=== PATIENT | female | born 1960 | race Hispanic/Latino ===

== ENCOUNTER 2021-03-16 05:56 | Emergency (ER) | payer OTHER ==
[~2021-03-16] VITALS: Ht 160 cm; Wt 80.7 kg
[2021-03-16] MEDS ORDERED: LIDOCAINE HCL 1% LOCAL INJ 20 ML VIAL INJ STA (06:17)
[2021-03-16] MEDS ORDERED: HYDROCODONE/APAP 5MG-325MG TAB PO STA (06:17)
[2021-03-16] MEDS ORDERED: HYDROCODONE/APAP 5MG-325MG TAB ONE (06:33)
[2021-03-16] MEDS ORDERED: LIDOCAINE HCL 1% LOCAL INJ 20 ML VIAL ONE (06:34)
[2021-03-16] MEDS ORDERED: MORPHINE SULFATE INJ 4 MG/ML INJ 1ML IM STA (08:09)
[2021-03-16] MEDS ORDERED: MORPHINE SULFATE INJ 4 MG/ML INJ 1ML ONE (08:24)
[2021-03-16] MEDS ORDERED: ULTRAM50 MG PO (08:43)
[2021-03-16 09:02] VITALS: BP 110/62
== END 2021-03-16 09:00 | disposition home or self-care (01) ==
LOC: FSED 06:19
DX: S52.501A Unspecified fracture of the lower end of right radius, initial encounter for closed fracture (principal); S52.601A Unspecified fracture of lower end of right ulna, initial encounter for closed fracture; S00.83XA Contusion of other part of head, initial encounter; R42 Dizziness and giddiness; W18.12XA Fall from or off toilet with subsequent striking against object, initial encounter; Y92.002 Bathroom of unspecified non-institutional (private) residence as the place of occurrence of the external cause; I10 Essential (primary) hypertension; E11.65 Type 2 diabetes mellitus with hyperglycemia; I25.2 Old myocardial infarction; Z95.5 Presence of coronary angioplasty implant and graft
CPT/HCPCS: 25605; 36415; 70450; 72125; 73110; 82948; 93005; 99283; J2001; J2270

== ENCOUNTER 2021-07-14 09:34 | Emergency (ER) | payer OTHER ==
[~2021-07-14] VITALS: Ht 160 cm; Wt 80.7 kg
[~2021-07-14 09:34] MED LIST: ULTRAM50 MG PO
[2021-07-14] MEDS ORDERED: DEXAMETHASONE 4 MG TAB PO ONE (10:07)
[2021-07-14] MEDS ORDERED: MUCINEX DM ER1 EACH PO (11:03)
== END 2021-07-14 12:55 | disposition home or self-care (01) ==
LOC: ER 09:37
DX: R05 Cough (principal); J06.9 Acute upper respiratory infection, unspecified; I10 Essential (primary) hypertension; E11.9 Type 2 diabetes mellitus without complications; I25.10 Atherosclerotic heart disease of native coronary artery without angina pectoris; I25.2 Old myocardial infarction
CPT/HCPCS: 71045; 83518; 87070; 93005; 99284

== ENCOUNTER 2022-01-27 17:40 | Emergency (ER) | payer OTHER ==
[~2022-01-27] VITALS: Ht 160 cm; Wt 79.4 kg
[~2022-01-27 17:40] MED LIST changes: +MUCINEX DM ER1 EACH PO
[2022-01-27] MEDS ORDERED: ACETAMINOPHEN 325 MG TAB PO STA (18:09)
[2022-01-27] MEDS ORDERED: SODIUM CHLORIDE 0.9% 1000ML 1,000 ML IV STA (18:09)
[2022-01-27] MEDS ORDERED: PIPERACILLIN/TAZOBACTAM 3.375 GM in SODIUM CHLORIDE 0.9% 50ML 50 ML IV SCH (18:15)
[2022-01-27] MEDS ORDERED: ONDANSETRON HCL INJ 2MG/ML 2ML 2 MG/ML VIAL ONE (18:22)
[2022-01-27] MEDS ORDERED: SODIUM CHLORIDE 0.9% 1000ML 1,000 ML ONE (18:23)
[2022-01-27] MEDS ORDERED: IBUPROFEN 600 MG TAB ONE (18:24)
[2022-01-27 18:36] LABS: BASOPHILS % 0.3 % (0.0-1.0); EOSINOPHILS # (AUTO) 0.1 (0.0-0.4); EOSINOPHILS % 1.2 % (0.0-6.0); HEMATOCRIT 35.2 % (34.2-44.1); HEMOGLOBIN 11.4 g/dL (12.0-16.0); LYMPHOCYTES # (AUTO) 0.8 (1.0-3.2); LYMPHOCYTES % 8.6 % (18.0-39.1); MEAN CORPUSCULAR HEMOGLOBIN 28.8 pg (28-32); MEAN CORPUSCULAR HGB CONC 32.4 g/dL (31-35); MEAN CORPUSCULAR VOLUME 88.9 fL (81-99); MONOCYTES # (AUTO) 0.2 (0.2-0.8); NEUTROPHILS # (AUTO) 8.4 (2.1-6.9); NEUTROPHILS % 87.6 % (38.7-80.0); PLATELET COUNT 273 x10e3/uL (140-360); RED BLOOD COUNT 3.96 x10e6/uL (3.6-5.1); RED CELL DISTRIBUTION WIDTH 11.9 % (11.7-14.4)
[2022-01-27 18:54] LABS: ALBUMIN 3.5 g/dL (3.5-5.0); ALBUMIN/GLOBULIN RATIO 0.8 (0.8-2.0); ANION GAP 15.3 mmol/L (8-16); CALCIUM 9.3 mg/dL (8.4-10.2); CREATININE, SERUM 1.59 mg/dL (0.57-1.11); POTASSIUM 4.3 mmol/L (3.5-5.1)
[2022-01-27] MEDS ORDERED: ONDANSETRON HCL INJ 2MG/ML 2ML 2 MG/ML VIAL IV STA (19:09)
== END 2022-01-27 20:40 | disposition home or self-care (01) ==
LOC: ER 18:06
DX: R50.9 Fever, unspecified (principal); B34.9 Viral infection, unspecified; I10 Essential (primary) hypertension; E11.9 Type 2 diabetes mellitus without complications; I25.10 Atherosclerotic heart disease of native coronary artery without angina pectoris; I25.2 Old myocardial infarction; Z95.5 Presence of coronary angioplasty implant and graft
CPT/HCPCS: 36415; 71046; 80053; 83605; 85025; 87040; 87071; 87186; 87205; 99284; J2405; J7030; U0002

== ENCOUNTER 2022-01-28 07:53 | Emergency (ER) | payer OTHER ==
[~2022-01-28] VITALS: Ht 160 cm; Wt 79.4 kg
[2022-01-28 09:27] LABS: CLARITY,URINE CLOUDY (CLEAR); COLOR,URINE YELLOW (YELLOW); KETONES,URINE NEGATIVE (NEGATIVE); LEUKOCYTE ESTERASE ,URINE MODERATE (NEGATIVE); NITRITE,URINE NEGATIVE (NEGATIVE); PROTEIN,URINE DIPSTICK TRACE (NEGATIVE); URINE UROBILINOGEN 0.2 mg/dL (0.2 - 1)
[2022-01-28 09:41] LABS: BACTERIA,URINE MODERATE /HPF; EPITHELIAL CELLS,URINE FEW /LPF; WBC,URINE (MAN) >50 /HPF (0-5)
== END 2022-01-28 09:52 | disposition home or self-care (01) ==
LOC: ER 08:04
DX: R50.9 Fever, unspecified (principal); N39.0 Urinary tract infection, site not specified; R11.2 Nausea with vomiting, unspecified; I12.9 Hypertensive chronic kidney disease with stage 1 through stage 4 chronic kidney disease, or unspecified chronic kidney disease; E11.22 Type 2 diabetes mellitus with diabetic chronic kidney disease; E11.65 Type 2 diabetes mellitus with hyperglycemia; N18.9 Chronic kidney disease, unspecified; I25.2 Old myocardial infarction; I25.10 Atherosclerotic heart disease of native coronary artery without angina pectoris; Z95.5 Presence of coronary angioplasty implant and graft
CPT/HCPCS: 36415; 74018; 81001; 82948; 99283

== ENCOUNTER → 2022-09-08 | Day surgery (SDC) | payer OTHER ==
[~2022-09-08] MED LIST changes: +ASPIRIN81 MG PO; +ATORVASTATIN CA20 MG PO; +CYCLOPENTOLATE HCL 1% OPTH SOLN 2ML BTL ONE; +FAMOTIDINE20 MG PO; +FENOFIBRATE67 MG PO; +IRBESARTAN150 MG PO; +KETOROLAC TROMETHAMINE 0.5% OP SOLN 3 ML BTL ONE; +LEVEMIR FL100 UNIT/1 SC; +METOPROLOL SUCC25 MG PO; +NOVOLOG100 UNIT/1 SC; +OR PHACO EYE KIT ONE; +OZEMPIC0.25 MG/0. PO; +OZEMPIC0.25 MG/0. SC; +PREOP PHACO EYE KIT ONE; +SERTRALINE HCL50 MG PO; +ZETIA10 MG PO
[2022-09-08 12:25] VITALS: BP 133/65
== END | disposition home or self-care (01) ==
LOC: OR 09:33
PROVIDERS: ATTEND Ophthalmology
DX: H25.12 Age-related nuclear cataract, left eye (principal); I25.10 Atherosclerotic heart disease of native coronary artery without angina pectoris; E78.00 Pure hypercholesterolemia, unspecified; I25.2 Old myocardial infarction; E11.36 Type 2 diabetes mellitus with diabetic cataract; E11.22 Type 2 diabetes mellitus with diabetic chronic kidney disease; I13.10 Hypertensive heart and chronic kidney disease without heart failure, with stage 1 through stage 4 chronic kidney disease, or unspecified chronic kidney disease; N18.31 Chronic kidney disease, stage 3a; E11.65 Type 2 diabetes mellitus with hyperglycemia; E66.9 Obesity, unspecified; E78.1 Pure hyperglyceridemia; B35.1 Tinea unguium; F32.1 Major depressive disorder, single episode, moderate; Z79.82 Long term (current) use of aspirin; Z79.4 Long term (current) use of insulin; Z79.899 Other long term (current) drug therapy; Z68.34 Body mass index [BMI] 34.0-34.9, adult; Z95.5 Presence of coronary angioplasty implant and graft
CPT/HCPCS: 36415; 82948; V2632

== ENCOUNTER → 2022-10-13 | Day surgery (SDC) | payer OTHER ==
[2022-10-12 10:48] LABS: BASOPHILS % 0.6 % (0.0-1.0); EOSINOPHILS # (AUTO) 0.2 (0.0-0.4); EOSINOPHILS % 3.6 % (0.0-6.0); HEMATOCRIT 38.3 % (34.2-44.1); HEMOGLOBIN 11.5 g/dL (12.0-16.0); LYMPHOCYTES # (AUTO) 1.5 (1.0-3.2); LYMPHOCYTES % 22.9 % (18.0-39.1); MEAN CORPUSCULAR HEMOGLOBIN 29.2 pg (28-32); MEAN CORPUSCULAR VOLUME 97.2 fL (81-99); MONOCYTES # (AUTO) 0.3 (0.2-0.8); MONOCYTES % 4.5 % (4.4-11.3); NEUTROPHILS # (AUTO) 4.4 (2.1-6.9); NEUTROPHILS % 68.1 % (38.7-80.0); PLATELET COUNT 280 x10e3/uL (140-360); RED BLOOD COUNT 3.94 x10e6/uL (3.6-5.1); RED CELL DISTRIBUTION WIDTH 11.7 % (11.7-14.4)
[2022-10-12 11:00] LABS: INR 1.01; PROTHROMBIN TIME 13.5 seconds (11.9-14.5)
[2022-10-12 11:01] LABS: PARTIAL THROMBOPLASTIN TIME 27.6 seconds (23.8-35.5)
[2022-10-12 11:14] LABS: CALCIUM 9.1 mg/dL (8.4-10.2); CREATININE, SERUM 1.44 mg/dL (0.57-1.11)
[~2022-10-13] MED LIST changes: -CYCLOPENTOLATE HCL 1% OPTH SOLN 2ML BTL ONE; -KETOROLAC TROMETHAMINE 0.5% OP SOLN 3 ML BTL ONE
[2022-10-13 09:30] VITALS: BP 104/47
== END | disposition home or self-care (01) ==
LOC: OR 07:08
PROVIDERS: ATTEND Ophthalmology
DX: H25.11 Age-related nuclear cataract, right eye (principal); I25.10 Atherosclerotic heart disease of native coronary artery without angina pectoris; I25.2 Old myocardial infarction; E11.22 Type 2 diabetes mellitus with diabetic chronic kidney disease; I12.9 Hypertensive chronic kidney disease with stage 1 through stage 4 chronic kidney disease, or unspecified chronic kidney disease; N18.9 Chronic kidney disease, unspecified; E78.5 Hyperlipidemia, unspecified; Z01.812 Encounter for preprocedural laboratory examination; Z79.82 Long term (current) use of aspirin; Z79.4 Long term (current) use of insulin; Z79.899 Other long term (current) drug therapy
CPT/HCPCS: 36415; 80048; 82948; 85025; 85610; 85730; V2632